=== PATIENT | female | born 2000 | race African-American/Black ===

== ENCOUNTER → 2021-08-04 11:24 | Outpatient (CLI) | payer SELFPAY ==
--- NOTE | ~2021-08-04 | US_ITS ---
EXAMINATION: US transvaginal DATE: 08/04/2021 12:00 INDICATION: Surrogate. TECHNIQUE: Multiple transvaginal sonographic images of the pelvis were obtained. COMPARISON: None. FINDINGS: The uterus measures 8.9 x 3.7 x 5.3 cm. There is physiologic free fluid in the pelvis. The endometria l complex measures 10 mm in thickness. The right ovary measures 4.1 x 2.0 x 3.4 cm. The largest folli jessika in right ovary measures 1.2 cm. The left ovary measures 1.8 x 0.9 x 1.9 cm. The largest follicle in left ovary measures 0.4 cm. IMPRESSION: 1. Normal pelvis. Reviewed, dictated and finalized at location B. IST WATER PURIFICATION IMPRESSION: 1. Normal pelvis.
== END ==
DX: Z31.9 Encounter for procreative management, unspecified (principal)
CPT/HCPCS: 76830

== ENCOUNTER → 2021-08-29 10:03 | Outpatient (CLI) | payer SELFPAY ==
--- NOTE | ~2021-08-29 | US_ITS ---
EXAMINATION: US transvaginal EXAM DATE: 08/29/2021 10:30 INDICATION: Surrogate TECHNIQUE: Pelvic transvaginal sonogram was performed. There are multiple grayscale and Doppler henrik ges available for interpretation. Comparison is made to prior examination from 08/04/2021. FINDINGS: Uterus measures 9.4 x 4.1 x 5.6 cm, and is morphologically normal. Endometrial stripe vasquez sures 10 mm, within normal limits. There is no free pelvic fluid. Right adnexa: The ovary measures 3.3 x 1.9 x 2.8 cm and is morphologically normal. Ovarian vascular f low confirmed. Left adnexa: The ovary measures 2.8 x 1.6 x 2.0 cm and is morphologically normal. Ovarian vascular fl ow confirmed. IMPRESSION: 1. Unremarkable pelvic ultrasound exam. Reviewed, dictated and finalized at location B. TECHNICIAN
== END ==
DX: Z31.9 Encounter for procreative management, unspecified (principal)
CPT/HCPCS: 76830

== ENCOUNTER → 2021-09-20 13:41 | Outpatient (CLI) | payer SELFPAY ==
--- NOTE | ~2021-09-20 | US_ITS ---
EXAMINATION: US transvaginal DATE: 09/20/2021 14:14 INDICATION: Surrogate. TECHNIQUE: Multiple transvaginal sonographic images of the pelvis were obtained. COMPARISON: ultrasound 08/29/21 FINDINGS: The uterus measures 9.1 x 4.2 x 5.2 cm. There is no free fluid in the pelvis. The endometrial complex measures 10 mm in thickness. The right ovary measures 2.7 x 1.4 x 2.5 cm. Follicles measuring 4 mm a nd 5 mm are seen in right ovary. The left ovary measures 3.1 x 1.1 x 2.3 cm. Approximately 5 follicle s measuring up to 5 mm are seen in left ovary. There is normal vascular flow in the ovaries. IMPRESSION: 1. Normal pelvis. Reviewed, dictated and finalized at location A. RVISOR RESIDENTIAL IMPRESSION: 1. Normal pelvis.
== END ==
DX: Z31.9 Encounter for procreative management, unspecified (principal)
CPT/HCPCS: 76830

== ENCOUNTER → 2021-09-28 14:40 | Outpatient (CLI) | payer SELFPAY ==
--- NOTE | ~2021-09-28 | US_ITS ---
EXAMINATION: US transvaginal DATE: 09/28/2021 15:03 INDICATION: Surrogate. TECHNIQUE: Multiple endovaginal sonographic images of the pelvis were obtained. COMPARISON: 09/20/2021 FINDINGS: The uterus measures 8.6 x 4.4 x 5.6 cm. The endometrial complex measures 11 mm. The right o vary measures 3.2 x 1.2 x 1.0 cm. There are follicles measuring 3 mm and 6 mm in the right ovary. The left ovary measures 3.1 x 1.6 x 1.2 cm. There are follicles measuring 6 mm, 5 mm, and 4 mm in the le ft ovary. There is normal vascular flow in the ovaries. There is no free fluid in the pelvis. IMPRESSION: 1. Normal pelvic ultrasound. Reviewed, dictated and finalized at location B. EON PARTNER
== END ==
DX: Z31.9 Encounter for procreative management, unspecified (principal)
CPT/HCPCS: 76830

== ENCOUNTER 2021-10-31 13:57 | Outpatient (CLI) | payer SELFPAY ==
--- NOTE | ~2021-10-31 | US_ITS ---
EXAMINATION: US OB transvaginal DATE: 10/31/2021 15:00 INDICATION: Surrogate. Encounter for procreative management. TECHNIQUE: Real-time transvaginal pelvic ultrasound was performed. COMPARISON: None. FINDINGS: The uterus measures 8.5 x 4.8 x 6.3 cm. There is an intrauterine gestational sac. A yolk sac is ident ified. The crown rump length measures 1.0 cm, which correlates with an estimated gestational a ge of 7 weeks and 0 day(s) (+/-) 4 day(s). heart motion is identified measuring 140 beats per m inute (bpm) by M-mode Doppler. There is a small subchorionic hematoma measuring 2.0 x 1.2 x 2.3 cm. T he ovaries are not visualized. There is no free fluid in the pelvis. IMPRESSION: 1. Single living intrauterine gestation with estimated date of delivery of 06/19/2022. 2. Small subchorionic hematoma. Reviewed, dictated and finalized at location A. IMPRESSION: 1. Single living intrauterine gestation with estimated date of delivery of . 2. Small subchorionic hematoma.
== END 2021-10-31 13:58 ==
DX: Z31.9 Encounter for procreative management, unspecified (principal); O46.90 Antepartum hemorrhage, unspecified, unspecified trimester; Z3A.00 Weeks of gestation of pregnancy not specified
CPT/HCPCS: 76817

== ENCOUNTER 2021-11-18 12:43 | Outpatient (CLI) | payer SELFPAY ==
--- NOTE | ~2021-11-18 | US_ITS ---
EXAMINATION: US OB transvaginal DATE: 11/18/2021 13:18 INDICATION: Surrogate viability and size assessment TECHNIQUE: Real-time pelvic transabdominal and transvaginal ultrasound was performed. COMPARISON: None. FINDINGS: The uterus measures 9.2 x 7.9 x 9.8 cm. There is an intrauterine gestational sac. There is a 1.6 x 1.0 x 1.9 cm subchorionic hematoma with decrease in size. A yolk sac is identified. he art motion is identified measuring 167 beats per minute (bpm) by M-mode Doppler. The crown rump length measures 3 cm , which correlates with an estimated gestational age of 10 weeks and 0 day(s) ( +/-) 6 day(s). The right ovary measures 3.0 x 2.0 x 2.5 cm. The left ovary measures 1.8 x 1.0 x 3.1 cm. There is nor mal vascular flow in the ovaries. There is no free fluid in the pelvis. IMPRESSION: 1. Live intrauterine with an estimated gestational age of 10 weeks and 0 day(s) (+/-) 6 day (s) and an estimated delivery date of 06/16/2022. 2. Small subchronic hematoma with decrease in size. Reviewed, dictated and finalized at location B. IMPRESSION: 1. Live intrauterine with an estimated gestational age of 10 weeks an d 0 day(s) (+/-) 6 day(s) and an estimated delivery date of 06/16/2022. 2. Small subchronic hematoma with decrease in size.
== END 2021-11-18 12:44 ==
DX: Z36.9 Encounter for antenatal screening, unspecified (principal); Z3A.00 Weeks of gestation of pregnancy not specified
CPT/HCPCS: 76817

== ENCOUNTER 2022-06-03 09:22 | Outpatient (RCR) | payer SELFPAY ==
[2022-06-03 19:31] VITALS: BP 116/71; PULSE 96
[2022-06-03 19:33] VITALS: BP 116/71; PULSE 109
--- NOTE | 2022-06-03 19:35 | PC.NURSE ---
pt presents to L&D with complaints of decreased movement. States she has only felt her baby move 3 times today and baby is usually very active. States she has eaten and drank plenty today. Denies any leaking of fluid or vaginal bleeding. No other complaints or concerns at this time.
== END 2022-06-03 20:00 | disposition home or self-care (01) ==
LOC: ANHOBOP 09:22
PROVIDERS: Visit Provider Obstetrics & Gynecology
DX: O36.8130 Decreased fetal movements, third trimester, not applicable or unspecified (principal); Z3A.37 37 weeks gestation of pregnancy
CPT/HCPCS: 59025

== ENCOUNTER 2022-06-10 12:31 | Observation (INO) | payer SELFPAY ==
[2022-06-10 14:15] VITALS: BMI 25.4
--- NOTE | 2022-06-13 07:44 | PM.OBTRLD ---
OB - Triage/Final Diagnosis Visit Information Reason for evaluation: threatened labor Comments/Additional reasons for admission: I have assessed the risk for this patient, Shagufta Greco, and determined that she would benefit from observation care.
== END 2022-06-10 14:32 | disposition home or self-care (01) ==
PROVIDERS: Admitting Provider Obstetrics & Gynecology; Visit Provider Obstetrics & Gynecology
DX: O47.1 False labor at or after 37 completed weeks of gestation (principal); Z3A.38 38 weeks gestation of pregnancy
CPT/HCPCS: 59025; G0378; G0379

== ENCOUNTER 2022-06-10 21:32 | Inpatient (IN) | payer SELFPAY ==
[2022-06-10] VITALS (29 sets, daily range): BP systolic 112–139; BP diastolic 68–96; PULSE 88–121; RESP 18; TEMP 37.1; O2SAT 97–100; BMI 25.7
--- NOTE | 2022-06-10 21:32 | LDADM ---
This patient, Shagufta Greco, was admitted to Labor/Delivery/Recovery 103 on 06/10/22 at 21:32. Plans for labor, pain management and were discussed with patient. Patient/family oriented to hospital policies and general routines including ID bracelet, bed and alarms, visiting hours, pain management, procedures, bathroom and other care routines, personal items, smoking policy, room service/diet and guest tray routines, security routines, and visiting hours. Patient/Family are encouraged to report perceived risks to care and to ask questions if they do not understand what they are told or what they should do. See OBIX for further documentation.
[2022-06-10] MEDS: AMPICILLIN 2 GM/NS 100 ML 2 GM/100 ML BAG IVPB (22:02)
[2022-06-10] MEDS: LACTATED RINGERS 1,000 ML 125 ML IV CONT ×2 (22:03→22:51)
[2022-06-10 22:22] LABS: Basophils Percent Auto 0.2 % (0.2-1.2); Eosinophils Percent Auto 0.1 % (0-4.4); Hematocrit 30.9 % (37.0-47.0); Hemoglobin 9.5 g/dL (12.0-15.0); Immature Granulocyte Absolute 0.08 K/mm3 (0.00-0.031); Immature Granulocyte Percent A 0.7 % (0-0.5); Lymphocytes Absolute Auto 1.33 K/mm3 (0.9-3.2); Lymphocytes Percent Auto 11.8 % (18.3-44.2); Mean Corpuscular HGB Conc 30.7 g/dl (32-36); Mean Corpuscular Volume 91.2 fl (80-100); Mean Platelet Volume 10.2 fl (7.4-10.4); Monocytes Absolute Auto 0.7 K/mm3 (0.1-0.6); Monocytes Percent Auto 6.5 % (2.6-8.5); Neutrophils Absolute Auto 9.1 K/mm3 (1.3-6.7); Neutrophils Percent Auto 80.7 % (45.5-73.1); Platelet Count Result 372 k/mm3 (150-375); Red Blood Count 3.39 M/mm3 (4.2-5.4); Red Cell Distribution Width 14.9 % (11.5-14.5); White Blood Count 11.3 K/mm3 (4.5-10.0)
--- NOTE | 2022-06-10 22:32 | P.PNAN_ITS ---
Anes - Eval Pre Procedure Procedure: labor epidural Date/Time: 06/10/22 22:32 Pre Op Diagnosis: contractions Patient Data Age: 21 Gender: F Height: 1.6 m Weight: 66 kg Last Vital Signs O2 Del Method Room Air 06/10/22 22:20 Allergies Allergy/AdvReac Type Severity Reaction Status Date / Time No Known Allergies Allergy Verified 05/18/22 13:01 Home Medications Medication Instructions Recorded Confirmed Type prenat.vits,dashawn,[id number] 1 tablet PO DAILY 05/18/22 06/10/22 History Laboratory Tests 06/10/22 06/10/22 06/10/22 22:00 22:00 22:00 WBC 11.3 K/mm3 H K/mm3 (4.5-10.0) RBC 3.39 M/mm3 L M/mm3 (4.2-5.4) Hgb 9.5 g/dL L g/dL (12.0-15.0) Hct 30.9 % L % (37.0-47.0) MCV 91.2 fl fl (80-100) MCH 28.0 pg pg (26-34) MCHC 30.7 g/dl L g/dl (32-36) RDW 14.9 % H % (11.5-14.5) Plt Count 372 k/mm3 k/mm3 (150-375) MPV 10.2 fl fl (7.4-10.4) Immature Gran % (Auto) 0.7 % H % (0-0.5) Neut % (Auto) 80.7 % H % (45.5-73.1) Lymph % (Auto) 11.8 % L % (18.3-44.2) [place] % (Auto) 6.5 % % (2.6-8.5) Eos % (Auto) 0.1 % % (0-4.4) Baso % (Auto) 0.2 % % (0.2-1.2) Lymph # (Auto) 1.33 K/mm3 K/mm3 (0.9-3.2) [place] # (Auto) 0.7 K/mm3 H K/mm3 (0.1-0.6) Eos # (Auto) 0.0 K/mm3 K/mm3 (0-0.3) Baso # (Auto) 0.0 K/mm3 K/mm3 (0.0-0.1) Abs Immat Gran (auto) 0.08 K/mm3 H K/mm3 (0.00-0.031) Absolute Neuts (auto) 9.1 K/mm3 H K/mm3 (1.3-6.7) Absolute Nucleated RBC 0.0 K/mm3 K/mm3 (0.0-0.012) Nucleated RBC % 0.0 % % (0.0-0.2) RPR Pending HIV 1&2 Ab/P24 Ag 4thGn Pending Patient hx anesthesia problems: none Family hx anesthesia problems: none Results Review: All pre-operative results and documents have been reviewed as part of the pre- operative evaluation. [facility] Family History Family History Other Patient denies significant medical history Social History Social History Smoking status: Never smoker Substance use: never Lack of Transportation: No Lack of Food: Never True Current Housing: I Have Housing Concerned About Future Housing: No Difficulty Paying Gas/Electric Bills: No Difficulty Paying for Meds: No Currently Unemployed: No Education: Decline to Answer Difficulty w/ Childcare or Family Care: No Spiritual care concerns: No Exam Day of Procedure 06/10/22 22:32 Patient weight: normal Heart: regular rate and rhythm Lungs: normal air movement Airway: Mallampati scale Neurological: alert and oriented
[2022-06-10 23:15] LABS: HIV 1/2 Ab P24 Ag Result Negative (Negative)
[2022-06-11] VITALS (20 sets, daily range): BP systolic 102–238; BP diastolic 66–217; PULSE 87–142; RESP 16; TEMP 36.4–37.4; O2SAT 99–100
[2022-06-11] MEDS: OXYTOCIN 30 UNITS/NS 500 ML 30 UNITS/500 ML BAG 999 UNITS IV CONT (01:08)
--- NOTE | 2022-06-11 01:20 | PM.OBPRVD ---
OB - Delivery Note Procedure Delivery date: 06/11/22 Induction method: None Delivery monitor: External FHT Route of delivery: Episiotomy description: None Laceration Description: None Quantitative Blood Loss (ml): 59 Anesthesia type: Epidural Disposition: Floor [place] Baby Date of : 06/11/22 Time of : 01:08 Weeks of gestation at delivery: 39 gender: Male presentation: vertex position: Right Occiput Anterior Placenta delivery description: Spontaneous Cord Vessel Description: 3 Vessels and Delayed Cord Clamping score one minute: 9 score five minutes: 9
--- NOTE | 2022-06-11 01:22 | PM.IMHP ---
H&P: HPI History of Present Illness Date/Time: 06/11/22 01:22 Chief Complaint: Active labor at term Narrative: this is a 21-year-old 2 para 1 at term in active labor she is positive group B strep. This is a surrogate [facility] Family History Family History Other Patient denies significant medical history Social History Social History Smoking status: Never smoker Substance use: never Lack of Transportation: No Lack of Food: Never True Current Housing: I Have Housing Concerned About Future Housing: No Difficulty Paying Gas/Electric Bills: No Difficulty Paying for Meds: No Currently Unemployed: No Education: Decline to Answer Difficulty w/ Childcare or Family Care: No Spiritual care concerns: No Meds Home Medications and Allergies Home Medications Medication Instructions Recorded Confirmed Type prenat.vits,dashawn,[id number] 1 tablet PO DAILY 05/18/22 06/10/22 History Allergies Allergy/AdvReac Type Severity Reaction Status Date / Time No Known Allergies Allergy Verified 05/18/22 13:01 Vital Signs Vital Signs - 24 hr 06/10/22 22:33 06/10/22 22:36 06/10/22 22:41 Temperature Pulse Rate 114 H 118 H Respiratory Rate Blood Pressure 134/91 H 139/82 Pulse Oximetry 100 100 Oxygen Delivery 06/10/22 22:45 06/10/22 22:46 06/10/22 22:48 Temperature Pulse Rate 107 H Respiratory Rate Blood Pressure 139/79 112/89 Pulse Oximetry 100 100 Oxygen Delivery 06/10/22 22:50 06/10/22 22:51 06/10/22 22:54 Temperature Pulse Rate 104 H 111 H 105 H Respiratory Rate Blood Pressure 130/87 136/94 H 137/84 Pulse Oximetry 97 Oxygen Delivery 06/10/22 22:55 06/10/22 22:57 06/10/22 22:00 Temperature 98.7 F Pulse Rate 98 Respiratory Rate 18 Blood Pressure 139/77 Pulse Oximetry 100 Oxygen Delivery 06/10/22 23:00 06/10/22 23:03 06/10/22 23:05 Temperature Pulse Rate 105 H 101 H Respiratory Rate Blood Pressure 136/85 132/75 Pulse Oximetry 100 99 Oxygen Delivery 06/10/22 23:06 06/10/22 23:09 06/10/22 23:10 Temperature Pulse Rate 96 104 H Respiratory Rate Blood Pressure 129/81 124/86 Pulse Oximetry 100 Oxygen Delivery 06/10/22 23:12 06/10/22 23:15 06/10/22 23:18 Temperature Pulse Rate 91 105 H 110 H Respiratory Rate Blood Pressure 119/82 134/83 134/82 Pulse Oximetry 100 Oxygen Delivery 06/10/22 23:20 06/10/22 23:21 06/10/22 23:24 Temperature Pulse Rate 99 96 Respiratory Rate Blood Pressure 117/68 135/96 H Pulse Oximetry 100 Oxygen Delivery 06/10/22 23:25 06/10/22 23:27 06/10/22 23:30 Temperature Pulse Rate 98 106 H Respiratory Rate Blood Pressure 130/88 126/71 Pulse Oximetry 99 100 Oxygen Delivery 06/10/22 23:35 06/10/22 23:45 06/11/22 00:00 Temperature Pulse Rate 93 127 H Respiratory Rate Blood Pressure 124/95 H 106/90 Pulse Oximetry 100 Oxygen Delivery 06/11/22 00:15 06/11/22 00:30 06/11/22 00:45 Temperature Pulse Rate 93 97 Respiratory Rate Blood Pressure 112/69 131/89 238/217 H Pulse Oximetry Oxygen Delivery 06/11/22 01:01 06/11/22 01:15 06/10/22 22:20 Temperature Pulse Rate 142 H 109 H Respiratory Rate Blood Pressure 135/89 123/66 Pulse Oximetry Oxygen Delivery Room Air Exam Const: General: cooperative, healthy appearing and comfortable Nutritional Appearance: average body habitus Orientation/consciousness: oriented to person, oriented to place and oriented to time Resp: Effort & Inspection: normal respiratory effort Cardio: Rate: regular rate Rhythm: regular rhythm Heart sounds: S1 normal heart sound present and S2 normal heart sound present GI: Inspection: normal to inspection : External Female Exam: normal external
[2022-06-11] MEDS: IBUPROFEN 600 MG TABLET PO ×4 (03:24→21:05)
[2022-06-11] MEDS: BENZOCAINE 20% AER SPR (*SP) 56 GM CAN 1 SPRAY TOPICAL (03:24)
[2022-06-11] MEDS: WITCH HAZEL 40 PADS 1 PAD TOPICAL (03:24)
[2022-06-11] MEDS: DOCUSATE SODIUM 100 MG CAPSULE PO ×2 (08:40→16:53)
--- NOTE | 2022-06-11 14:06 | WPDANLDPN2 ---
Anes-Prog Note L&D Date/Time: 06/11/22 14:06 Comfortable throughout: labor and delivery Neuraxial method: epidural Epidural/Spinal procedure site: clean & non-tender Neuro status: Neuro function grossly intact. Cardiovascular status: normal Respiratory status: normal Airway patency: baseline Mental status: baseline Post-Op hydration status: normal Vital Signs: Last Vital Signs Temp 36.6 C 06/11/22 12:00 Pulse 96 06/11/22 12:00 Resp 16 06/11/22 12:00 BP 102/66 06/11/22 12:00 Pulse Ox 100 06/11/22 12:00 O2 Del Method Room Air 06/11/22 09:00 Pain score (VAS): 0 I/O: Intake & Output 06/10/22 06/11/22 06/11/22 23:59 07:59 15:59 Intake Total 1100 900 200 Output Total 152 Balance 1100 748 200 Post-procedural complaints: none Patient feedback: Patient satisfied with anesthetic care.
[2022-06-11] MEDS: POLYSACCHARIDE IRON COMPLEX 150 MG CAPSULE PO (16:52)
[2022-06-12] VITALS: BP 119/69; PULSE 88; RESP 18; TEMP 37; O2SAT 100
[2022-06-12 05:15] VITALS: BP 107/63; PULSE 84; RESP 16; TEMP 36.7; O2SAT 99
[2022-06-12] MEDS: IBUPROFEN 600 MG TABLET PO ×2 (05:21→11:28)
[2022-06-12 06:15] LABS: Hematocrit 26.2 % (37.0-47.0)
[2022-06-12 06:43] LABS: Rapid Plasma Reagin Non-Reactive (NonReactive)
--- NOTE | 2022-06-12 07:54 | P.DS_ITS ---
DS: Admitting Diagnosis Discharge Date 06/12/2022 Admitting Diagnosis Term /positive group B strep DS: Discharge Diagnosis Discharge Diagnosis (1) Group beta Strep positive: Code(s): B95.1 - Streptococcus, group B, as the cause of diseases classified elsewhere Status: Acute (2) Term : Code(s): Z34.90 - Encounter for supervision of normal , unspecified, unspecified trimester Status: Acute DS: Summary Hospital Course Reason for hospitalization: Active labor Hospital Course: The patient is a 21-year-old 2 now para 2 was admitted at term in active labor she is a surrogate. She was positive for group B strep been prophylaxed x1. She underwent spontaneous vaginal delivery with out difficulty. Her hospital course over the 24hours was unremarkable. She remained afebrile. She was up, voiding without difficulty, ambulating and generally without complaints. Time Spent with Patient Time attestation: Total time spent providing and/or coordinating discharge services: Exam Const: General: cooperative, healthy appearing and comfortable Nutritional Appearance: average body habitus Orientation/consciousness: oriented to person, oriented to place and oriented to time HENMT: Head: normal to inspection Resp: Effort & Inspection: normal respiratory effort GI: Inspection: normal to inspection (Fundus firm below the umbilicus) DS: Data Data Completed and Pending Labs on day of discharge: Labs from last 24 hours 06/12/22 06/10/22 05:19 22:00 Hgb 8.0 L Hct 26.2 L RPR Non-reactive Discharge Plan Discharge Attending physician on discharge: Davide Mora Discharging Clinician: Davide Mora Patient Disposition: Home, Self-Care Activity: may shower and pelvic rest Diet: heart healthy Patient Instructions: Antibiotic Form Stand Alone Forms: General Discharge Information Follow-up/Referrals: Davide Mora MD [Physician] - Discharge Medications: Continued prenat.vits,dashawn,[id number] Tablet 1 tablet PO DAILY Date of admission: 06/10/22 21:32 Primary Care Provider: PHYSICIAN,DIRECTOR SUPPLY Admitting Provider: Paulino Alves Attending physician on admission: Paulino Alves Condition: Stable
--- NOTE | 2022-06-12 07:58 | PM.OBPNVD ---
OB - PN: Subj Subjective Date/time seen: 06/12/22 07:58 Patient comments: no complaints and pain well controlled baby status: doing well OB - PN: Obj Data Labs CBC & Chem 7: 06/12/22 05:19 Labs: Laboratory Results - last 24 hr 06/10/22 06/12/22 22:00 05:19 Hgb 8.0 L Hct 26.2 L RPR Non-reactive OB - PN A/P Plan day: 1 Plan: routine care, discharge home and follow up 6 weeks Time Spent With Patient Time: Total time spent is greater than 50% in coordination of care (as documented) at patient's floor/unit and/or counseling patient: Time with patient: less than 15 minutes Exam Const: General: cooperative, healthy appearing and comfortable Nutritional Appearance: average body habitus Orientation/consciousness: oriented to person, oriented to place and oriented to time Resp: Effort & Inspection: normal respiratory effort GI: Auscultation: normal bowel sounds
[2022-06-12 08:50] VITALS: BP 112/69; PULSE 76; RESP 16; TEMP 36.9; O2SAT 100
[2022-06-12] MEDS: DOCUSATE SODIUM 100 MG CAPSULE PO (09:04)
[2022-06-12] MEDS: POLYSACCHARIDE IRON COMPLEX 150 MG CAPSULE PO (09:04)
[2022-06-12] MEDS: ACETAMINOPHEN 325 MG TABLET 650 MG PO (09:06)
--- NOTE | 2022-06-12 10:05 | PC.NURSE ---
Education: Mom and Baby Guide Given to: Mother Follow-Up: Call your delivering provider's office for an appointment to be seen in: 6 Weeks Mom and baby should come to the [facility] for the follow-up appointment. Appointment Date/Time: June 13, 2022 at 8:00 am What to expect at your follow-up visit: Blood Pressure Check Physical Assessment Call [phone] if you are unable to keep your appointment time. BREAST CARE: * Wear a snug supportive bra. * For engorgement discomfort: Breast Feeding: * Apply warm moist washcloths * Express milk as needed to relieve engorgement * Wear loose clothing Bottle Feeding: * May apply ice packs * For sore nipples: * Identify correct latch-on * Apply warm moist washcloths before and after nursing * Air dry nipples after nursing * May apply Lansinoh cream to nipples PERINEAL CARE: * Until bleeding stops, use your rohit bottle after urinating * Change your pad frequently throughout the day * You may take sitz baths several times a day (fill your bathtub with warm water and soak for 20 minutes.) Do NOT bathe in the water * No tub baths until seen by your physician - You may shower ACTIVITY: * Rest as much as possible. * Do not exercise or lift anything heavier than your baby (such as laundry or other children.) * Avoid stairs or driving as much as possible. * Do not put anything into the vagina. No douching, tampons, or sexual activity until seen by physician. NOTIFY PHYSICIAN IF YOU HAVE ANY QUESTIONS OR IF ANY OF THE FOLLOWING SYMPTOMS OCCUR: * If your episiotomy or incision becomes red, swollen, or more painful than what you have experienced in the hospital. * If your vaginal bleeding becomes foul smelling. * If your vaginal bleeding becomes more heavy than a period or if your bleeding changes from pink to bright red. However, you may pass an occasional walnut-sized clot once or twice for the first week . * If you experience a sharp, shooting pain in you calves. * If you discover a hard, reddened area on your breast or if you experience flu-like symptoms. DIET: * Eat regular, well-balanced meals. * Drink plenty of fluids daily. If , drink to thirst.
--- NOTE | 2022-06-12 13:19 | PC.NURSE ---
0900 Patient viewed the discharge video Mother & Baby Care, The First Two Weeks . Patient was given the opportunity and encouraged to ask questions. Patient verbalized understanding of information shared and has been given the mother/baby guide for home reference.
== END 2022-06-12 11:51 | disposition home or self-care (01) | DRG 560 ==
LOC: ANHOB2 06-12 10:24 → ANHLDR 06-14 09:30 → ANHOB2 06-14 09:30
PROVIDERS: Admitting Provider Obstetrics & Gynecology; Visit Provider Obstetrics & Gynecology
DX: O99.824 Streptococcus B carrier state complicating childbirth (principal); Z23 Encounter for immunization; Z37.0 Single live birth; Z3A.39 39 weeks gestation of pregnancy
CPT/HCPCS: 36415; 85014; 85018; 85025; 86592; 86703; 86850; 86900; 86901; 90471; 90686; A9270; G0008; G0432; J0290; J2590; J2795; J7120

== ENCOUNTER → 2023-01-03 16:19 | Outpatient (CLI) | payer SELFPAY ==
--- NOTE | ~2023-01-03 | US_ITS ---
EXAMINATION: US transvaginal DATE: 01/03/2023 INDICATION: Baseline for surrogacy TECHNIQUE: Multiple endovaginal sonographic images of the pelvis were obtained. COMPARISON: 10/29/2021 FINDINGS: The uterus measures 9.0 x 4.6 x 6.2 cm. The endometrial complex measures 9 mm. The right ov nilda measures 3.0 x 1.4 x 3.4 cm and contains two follicles measuring 5 mm and 4 mm. The left ovary me asures 2.4 x 1.2 x 1.3 cm and contains follicles measuring 2 mm and 2 mm. There is normal vascular fl ow in the ovaries. There is no free fluid in the pelvis. IMPRESSION: 1. Pelvic ultrasound as detailed above. Reviewed, dictated and finalized at location A.
== END ==
DX: Z31.9 Encounter for procreative management, unspecified (principal)
CPT/HCPCS: 76830

== ENCOUNTER → 2023-01-12 08:28 | Outpatient (CLI) | payer SELFPAY ==
--- NOTE | ~2023-01-12 | US_ITS ---
EXAMINATION: US transvaginal DATE: 01/12/2023 09:10 INDICATION: Evaluate endometrium. Comparison:Ultrasound dated TECHNIQUE: Multiple endovaginal sonographic images of the pelvis performed. FINDINGS: The uterus measures 6.7 x 4.5 x 5.3 cm. The endometrial complex measures 4 mm. The right ovary measures 3.4 x 1.2 x 2.2 cm and the left ovary measures 2.6 x 1.1 x 0.9 cm. There ar e small follicles in each ovary. Normal doppler signal in both ovaries. There is free fluid in the pelvis. There are no abnormal masses seen on either side. IMPRESSION: 1. Unremarkable pelvic ultrasound. Reviewed, dictated and finalized at location []
== END ==
DX: Z31.9 Encounter for procreative management, unspecified (principal)
CPT/HCPCS: 76830

== ENCOUNTER → 2023-01-18 09:27 | Outpatient (CLI) | payer SELFPAY ==
--- NOTE | ~2023-01-18 | US_ITS ---
EXAMINATION: US transvaginal DATE: 01/18/2023 10:04 INDICATION: Encounter for procreative management, unspecified TECHNIQUE: Multiple endovaginal sonographic images of the pelvis were obtained. COMPARISON: 01/12/2023 FINDINGS: The uterus measures 9.1 x 4.3 x 5.8 cm. The endometrial complex measures 6 mm. The right ov nilda measures 3.1 x 1.8 x 2.6 cm. There are at least seven follicles of the right ovary which measure up to 6 mm. The left ovary measures 2.2 x 1.4 x 2.1 cm. Although slightly obscured by bowel gas, at l east four follicles are visualized in the left ovary which measure up to 8 mm. There is normal vascul ar flow in the ovaries. There is no free fluid in the pelvis. IMPRESSION: 1. Bilateral ovarian follicles as described above. Reviewed, dictated and finalized at location L.
== END ==
DX: Z31.9 Encounter for procreative management, unspecified (principal)
CPT/HCPCS: 76830

== ENCOUNTER → 2023-01-24 09:36 | Outpatient (CLI) | payer SELFPAY ==
--- NOTE | ~2023-01-24 | US_ITS ---
EXAMINATION: US transvaginal DATE: 01/24/2023 10:00 INDICATION: Encounter for procreative management, unspecified. TECHNIQUE: Multiple transvaginal sonographic images of the pelvis were obtained. COMPARISON: ultrasound 01/18/23 FINDINGS: The uterus measures 8.5 x 4.2 x 5.0 cm. There is no free fluid in the pelvis. The endometrial complex measures 8 mm in thickness. The right ovary measures 3.5 x 1.6 x 2.8 cm. 6 mm, 6 mm, and 5 mm follic les are measured in the right ovary. The left ovary measures 2.0 x 1.4 x 0.9 cm. Approximately 5 foll icles are seen in the left ovary measuring up to 5 mm. There is normal vascular flow in the ovaries. IMPRESSION: 1. Normal pelvis. Reviewed, dictated and finalized at location A. IMPRESSION: 1. Normal pelvis.
== END ==
DX: Z31.9 Encounter for procreative management, unspecified (principal)
CPT/HCPCS: 76830

== ENCOUNTER → 2023-02-17 08:35 | Outpatient (CLI) | payer SELFPAY ==
--- NOTE | ~2023-02-17 | US_ITS ---
EXAMINATION: US transvaginal DATE: 02/17/2023 09:35 INDICATION: Follicle count. TECHNIQUE: Multiple endovaginal sonographic images of the pelvis were obtained. COMPARISON: 01/24/2023 FINDINGS: Uterus: Retroverted. 7.2 x 5.0 x 5.1 cm. Endometrial complex measures 5 mm. Right Ovary: Not visualized. No adnexal mass. Left Ovary: Not visualized. No adnexal mass. There is no free fluid in the pelvis. IMPRESSION: Ovaries were not visualized in this examination. Reviewed, dictated and finalized at location K.
== END ==
DX: Z31.9 Encounter for procreative management, unspecified (principal)
CPT/HCPCS: 76830

== ENCOUNTER → 2023-03-06 08:22 | Outpatient (CLI) | payer SELFPAY ==
--- NOTE | ~2023-03-06 | US_ITS ---
EXAMINATION: US transvaginal DATE: 03/06/2023 09:32 INDICATION: Encounter for procreative management, unspecified TECHNIQUE: Multiple endovaginal sonographic images of the pelvis were obtained. COMPARISON: 02/17/2023 FINDINGS: The uterus measures 8.8 x 4.3 x 5.5 cm. The endometrial complex measures 4 mm. The right ov nilda measures 1.1 x 1.9 x 1 cm. There are three follicles identified in the right ovary, the largest o f which measures 5 x 3 x 2 mm. The left ovary measures 2.7 x 1.2 x 1.5 cm. There are seven follicles identified in the left ovary, the largest of which measures 5 x 3 x 5 mm. There is normal vascular fl ow in the ovaries. There is no free fluid in the pelvis. IMPRESSION: 1. Seven left and three right ovarian follicles identified. Reviewed, dictated and finalized at location L.
== END ==
DX: Z31.9 Encounter for procreative management, unspecified (principal)
CPT/HCPCS: 76830

== ENCOUNTER → 2023-03-12 08:29 | Outpatient (CLI) | payer SELFPAY ==
--- NOTE | ~2023-03-12 | US_ITS ---
EXAMINATION: US transvaginal DATE: 03/12/2023 11:28 INDICATION: Encounter for appropriate management, unspecified TECHNIQUE: Multiple endovaginal sonographic images of the pelvis were obtained. COMPARISON: 03/06/2023 FINDINGS: The uterus measures 7.4 x 4.9 x 5.0 cm. The endometrial complex measures 9 mm. The right ov nilda measures 2.3 x 1.1 x 1.9 cm. Three right ovarian follicles are identified measuring 4 mm. The lef t ovary measures 2.8 x 1.1 x 2.5 cm. Four left ovarian follicles are identified measuring 6 mm, 6 mm, 5 mm, and 4 mm. There is normal vascular flow in the ovaries. There is no free fluid in the pelvis. IMPRESSION: 1. Three right and four left ovarian follicles identified. Reviewed, dictated and finalized at location A.
== END ==
DX: Z31.9 Encounter for procreative management, unspecified (principal)
CPT/HCPCS: 76830

== ENCOUNTER → 2023-03-15 09:54 | Outpatient (CLI) | payer SELFPAY ==
--- NOTE | ~2023-03-15 | US_ITS ---
EXAMINATION: US transvaginal DATE: 03/15/2023 10:42 INDICATION: Encounter for appropriate management TECHNIQUE: Multiple endovaginal sonographic images of the pelvis were obtained. COMPARISON: 03/12/2023 FINDINGS: The uterus measures eight point 4 x 4 by 5.7 cm. The endometrial complex measures 5 mm. The right ovary measures 2.1 x 1.5 x 1.6 cm. There are five follicles identified in the right ovary, the largest of which measures 5 mm. The left ovary measures 1.3 x 0.7 x 1.1 cm. There are four follicles identified in the left ovary, the largest of which measures 3 mm. There is normal vascular flow in t he ovaries. There is no free fluid in the pelvis. IMPRESSION: 1. Five right and four left ovarian follicles identified. Reviewed, dictated and finalized at location A.
== END ==
DX: Z31.9 Encounter for procreative management, unspecified (principal)
CPT/HCPCS: 76830

== ENCOUNTER → 2023-08-07 09:49 | Outpatient (CLI) | payer SELFPAY ==
--- NOTE | ~2023-08-07 | US_ITS ---
EXAMINATION: US transvaginal DATE: 08/07/2023 10:22 INDICATION: Encounter for appropriate management TECHNIQUE: Multiple transabdominal and endovaginal sonographic images of the pelvis were obtained. COMPARISON: None. FINDINGS: The retroverted uterus measures 8.4 x 4.8 x 5.3 cm. The endometrial complex measures 7 mm in thickne ss. The right ovary measures 3.5 x 1.9 x 2.3 cm. The left ovary measures 2.9 x 1.9 x 1.3 cm. There ar e a few subcentimeter anechoic follicles in both ovaries measuring up to 6 mm in maximal diameter, ap proximately 6 on the right and 12 on the left. There is normal vascular flow in the ovaries. There is small amount of likely physiologic free fluid in the pelvis. IMPRESSION: 1. Unremarkable pelvic ultrasound with several subcentimeter follicles in both ovaries, approximately 6 on the right and 12 on the left. Reviewed, dictated and finalized at location A. 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
== END ==
DX: N83.02 Follicular cyst of left ovary (principal); N83.01 Follicular cyst of right ovary; Z31.9 Encounter for procreative management, unspecified
CPT/HCPCS: 76830

== ENCOUNTER → 2023-08-13 10:02 | Outpatient (CLI) | payer SELFPAY ==
--- NOTE | ~2023-08-13 | US_ITS ---
EXAMINATION: US transvaginal DATE: 08/13/2023 10:37 INDICATION: Check ovarian cyst. Comparison:Ultrasound dated 08/07/2023 TECHNIQUE: Multiple transabdominal and endovaginal sonographic images of the pelvis performed. FINDINGS: The uterus measures 9.3 x 4.8 x 6.6 cm. The endometrial complex measures 5 mm. There is flu id and debris in the endometrium. The right ovary measures 3.8 x 2.1 x 3 cm and the left ovary measures 1.7 x 0.9 x 1.3 cm. There are 7 -8 right ovarian follicles, largest measuring 5 mm. There are 7 left ovarian follicles, largest measu ring 7 mm. Normal doppler signal in both ovaries. There is no free fluid in the pelvis. There are no abnormal masses seen on either side. IMPRESSION: 1. Fluid in the area in the endometrium. 2: Follicular changes of the ovaries described above. Reviewed, dictated and finalized at location B. TING CLERK
== END ==
DX: N85.8 Other specified noninflammatory disorders of uterus (principal); Z31.9 Encounter for procreative management, unspecified
CPT/HCPCS: 76830

== ENCOUNTER → 2023-08-17 14:27 | Outpatient (CLI) | payer SELFPAY ==
--- NOTE | ~2023-08-17 | US_ITS ---
EXAMINATION: US transvaginal DATE: 08/17/2023 14:58 INDICATION: Encounter for procreative management. TECHNIQUE: Multiple transvaginal sonographic images of the pelvis were obtained. COMPARISON: Ultrasound 08/13/2023 FINDINGS: The uterus measures 9.1 x 4.7 x 6.7 cm. There is physiologic free fluid in the pelvis. The endometria l complex measures 12 mm in thickness. The endometrium demonstrates a triple-line pattern comprising a central hyperechoic line surrounded by 2 hypoechoic layers. The right ovary measures 3.5 x 1.3 x 2. 7 cm. There are approximately 12 follicles in right ovary measuring up to 5 mm. The left ovary measur es 2.4 x 1.2 x 2.2 cm. There are approximately 6 follicles in left ovary measuring up to 7 mm. IMPRESSION: 1. Triple-line endometrial pattern. 2. Approximately 12 follicles in right ovary and 6 follicles in left ovary. Reviewed, dictated and finalized at location E. SPOTTER
== END ==
DX: Z13.9 Encounter for screening, unspecified (principal)
CPT/HCPCS: 76830

== ENCOUNTER → 2023-09-19 14:13 | Outpatient (CLI) | payer SELFPAY ==
--- NOTE | ~2023-09-19 | US_ITS ---
EXAMINATION: US OB transvaginal DATE: 09/19/2023 15:04 INDICATION: Preoperative management during first trimester . TECHNIQUE: Real-time pelvic ultrasound utilizing both a transvaginal and transabdominal probe was pe rformed. The interpreting radiologist was not present for the study. COMPARISON: None. FINDINGS: The uterus measures 9.7 x 5.4 x 6.8 cm. There is an intrauterine gestational sac. A yolk sac and fet al pole are identified. The crown rump length measures 5 mm, which correlates with an estimated gesta tional age of 6 weeks and 2 days. heart motion is identified measuring 116 beats per minute (bp m) by M-mode Doppler. There is a 3.5 x 1.2 x 1.9 cm hypoechoic region along the right side of the ges tational sac consistent with subchorionic hematoma. The right ovary measures 2.3 x 1.4 x 2.3 cm. The left ovary is not identified. There is no free fluid in the pelvis. IMPRESSION: 1. Single living fetus with heart rate of 116 bpm. 2. Gestational age by ultrasound of 6 weeks 2 day(s) +/- 4 day(s) with ultrasound estimated date of delivery ([facility]) of 05/12/2024. 3. 2.5 x 1.2 x 1.9 cm subchorionic hematoma along the right side of the gestational sac. Reviewed, dictated and finalized at location B. 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 Single living fetus with heart rate of 116 bpm. 2. Gestational age by ultrasound of 6 weeks 2 day(s) +/- 4 day(s) with ultraso und estimated date of delivery ([facility]) of 05/12/2024. 3. 2.5 x 1.2 x 1.9 cm subchorionic hematoma along the right side of the gestati onal sac.
== END ==
DX: Z31.9 Encounter for procreative management, unspecified (principal); Z3A.01 Less than 8 weeks gestation of pregnancy
CPT/HCPCS: 76817

== ENCOUNTER 2023-09-26 09:25 | Outpatient (CLI) | payer SELFPAY ==
--- NOTE | ~2023-09-26 | US_ITS ---
EXAMINATION: US OB transvaginal DATE: 09/26/2023 09:57 INDICATION: Procreative management TECHNIQUE: Real-time pelvic ultrasound utilizing both a transvaginal and transabdominal probe was pe rformed. The interpreting radiologist was not present for the study. COMPARISON: None. FINDINGS: The uterus measures 8.3 x 6.3 x 7.6 cm. There is an intrauterine gestational sac. A yolk sac and fet al pole are identified. The crown rump length measures 1.4 cm, which correlates with an estimated ges tational age of 7 weeks and 5 days. heart motion is identified measuring 151 beats per minute ( bpm) by M-mode Doppler. 3.5 x 2.7 x 1.9 cm hypoechoic subchorionic hematoma along side the gestationa l sac. The right ovary measures 3.0 x 3.1 x 1.6 cm. The left ovary measures 2.3 x 1.9 x 1.3 cm. There is no free fluid in the pelvis. IMPRESSION: 1. Single living fetus with heart rate of 1.4 cm. 2. Gestational age by ultrasound of 7 weeks 5 day(s) +/- 5 day(s) with ultrasound estimated date of delivery ([facility]) of 05/09/2024. 3. 3.5 x 2.7 x 1.9 cm subchorionic hematoma. Reviewed, dictated and finalized at location A. HER FINISHER IMPRESSION: 1. Single living fetus with heart rate of 1.4 cm. 2. Gestational age by ultrasound of 7 weeks 5 day(s) +/- 5 day(s) with ultraso und estimated date of delivery ([facility]) of 05/09/2024. 3. 3.5 x 2.7 x 1.9 cm subchorionic hematoma.
== END 2023-09-26 09:26 ==
LOC: MICIMG 09:27
DX: O36.899 Maternal care for other specified fetal problems, unspecified trimester (principal); Z3A.00 Weeks of gestation of pregnancy not specified; Z31.9 Encounter for procreative management, unspecified
CPT/HCPCS: 76817

== ENCOUNTER 2023-10-03 15:13 | Outpatient (CLI) | payer SELFPAY ==
--- NOTE | ~2023-10-03 | US_ITS ---
EXAMINATION: US OB transvaginal DATE: 10/03/2023 15:41 INDICATION: Procreative management. Subchorionic hematoma. TECHNIQUE: Real-time pelvic ultrasound utilizing transvaginal probe was performed. The interpreting r adiologist was not present for the study. COMPARISON: 09/26/2023 and 09/19/2023 FINDINGS: The uterus measures 9.7 x 7.1 x 7.2 cm. There is an intrauterine gestational sac. A yolk sac and fet al pole are identified. The crown rump length measures 2.1 cm, which is concordant within 3 days of t he estimated gestational age of 8 weeks and 2 days based upon earliest ultrasound performed on . heart motion is identified measuring 166 beats per minute (bpm) by M-mode Doppler. No sign ificant interval change in a hypoechoic subchorionic hematoma along the right side of the gestational sac which measures 3.7 x 3.2 x 2.9 cm. The right ovary measures 2.7 x 1.5 x 3.7 cm. The left ovary measures 3.4 x 1.4 x 1.1 cm. There is sma ll amount of anechoic free fluid free fluid in the cul-de-sac. IMPRESSION: 1. Single living fetus with heart rate of 166 bpm. 2. Harrington-rump length of 2.1 cm which is concordant with the previously estimated gestational age by u ltrasound of 8 weeks 2 day(s) with ultrasound estimated date of delivery ([facility]) of 05/12/2024. 3. No significant change in a 3.7 x 3.2 x 2.9 cm subchorionic hematoma. Reviewed, dictated and finalized at location B. IMPRESSION: 1. Single living fetus with heart rate of 166 bpm. 2. Harrington-rump length of 2.1 cm which is concordant with the previously estimate d gestational age by ultrasound of 8 weeks 2 day(s) with ultrasound estimated d ate of delivery ([facility]) of 05/12/2024. 3. No significant change in a 3.7 x 3.2 x 2.9 cm subchorionic hematoma.
== END 2023-10-03 15:14 ==
DX: Z31.9 Encounter for procreative management, unspecified (principal)
CPT/HCPCS: 76817

== ENCOUNTER 2023-10-10 10:17 | Outpatient (CLI) | payer SELFPAY ==
--- NOTE | ~2023-10-10 | US_ITS ---
EXAMINATION: US OB transvaginal DATE: 10/10/2023 10:47 INDICATION: Subchorionic hematoma follow-up, first trimester TECHNIQUE: Real-time pelvic transabdominal and transvaginal ultrasound was performed. COMPARISON: 10/03/2023 FINDINGS: The uterus measures 9.9 x 7.8 x 6.5 cm. There is an intrauterine gestational sac. There is a 4.2 x 1.1 x 1.7 cm subchorionic hematoma which previously measured 3.7 x 3.2 x 2.9 cm. A yolk sac i s identified. heart motion is identified measuring 165 beats per minute (bpm) by M-mode Doppler . The crown rump length measures 2.7 cm, which correlates with an estimated gestational age of 9 weeks and 4 day(s) (+/-) 6 day(s). The left ovary is not visualized however no left adnexal abnormality is seen. The right ovary measure s 2.6 x 1.3 x 1.6 cm. There is normal vascular flow in the right ovary. There is no free fluid in the pelvis. IMPRESSION: 1. Live intrauterine with an estimated gestational age of 9 weeks and 4 day(s) (+/-) 6 day( s) and an estimated delivery date of 05/10/2024. 2. Persistent subchorionic hematoma with decrease in volume. Reviewed, dictated and finalized at location F. IMPRESSION: 1. Live intrauterine with an estimated gestational age of 9 weeks and 4 day(s) (+/-) 6 day(s) and an estimated delivery date of 05/10/2024. 2. Persistent subchorionic hematoma with decrease in volume.
== END 2023-10-10 10:18 ==
LOC: GOSHIMG 10:18
DX: Z34.91 Encounter for supervision of normal pregnancy, unspecified, first trimester (principal); Z31.9 Encounter for procreative management, unspecified; Z3A.09 9 weeks gestation of pregnancy
CPT/HCPCS: 76817

== ENCOUNTER 2023-10-17 10:30 | Outpatient (CLI) | payer SELFPAY ==
--- NOTE | ~2023-10-17 | US_ITS ---
EXAMINATION: US OB transvaginal DATE: 10/17/2023 10:59 INDICATION: Subchorionic hematoma follow-up during first trimester TECHNIQUE: Real-time pelvic transabdominal and transvaginal ultrasound was performed. COMPARISON: 10/10/2023 FINDINGS: The uterus measures 9.6 x 7.8 x 7.7 cm. There is an intrauterine gestational sac. There is a 1.0 x 1.1 x 0.7 cm subchorionic hematoma with decrease in size since the comparison examination. A yolk sac is identified. heart motion is identified measuring 165 beats per minute (bpm) by M-mo de Doppler. The crown rump length measures 4.0 cm, which correlates with an estimated gestation al age of 11 weeks and 0 day(s) (+/-) 7 day(s). The ovaries are not visualized however no adnexal abnormality is seen. There is no free fluid in the pelvis. IMPRESSION: 1. Live intrauterine with an estimated gestational age of 11 weeks and 0 day(s) (+/-) 7 day (s) and an estimated delivery date of 05/07/2024. 2. Small subchorionic hematoma with decrease in size. Reviewed, dictated and finalized at location F. IMPRESSION: 1. Live intrauterine with an estimated gestational age of 11 weeks an d 0 day(s) (+/-) 7 day(s) and an estimated delivery date of 05/07/2024. 2. Small subchorionic hematoma with decrease in size.
== END 2023-10-17 10:31 ==
DX: Z31.9 Encounter for procreative management, unspecified (principal)
CPT/HCPCS: 76817